=== PATIENT | male | born 1980 | race African-American/Black ===

== ENCOUNTER 2016-09-16 08:35 | Emergency (ER) | payer MEDICAID ==
--- NOTE | ~2016-09-16 | EKG ---
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
--- NOTE | ~2016-09-16 | CR72 ---
[facility]. 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 MEDICAL IMAGING REPORT This report is preliminary unless electronic signature is present. EXAM Portable chest. INDICATIONS Chest pain today. COMPARISON 03/16/2007 FINDINGS The lungs are well expanded. There is no acute infiltrate. Heart size is normal. Visualized osseous structures are unremarkable. IMPRESSION No active disease. Dictated by... Severino Melara M.D. THIS IS AN ELECTRONICALLY VERIFIED REPORT Severino Melara M.D. at 09/17/2016 3:47 PM Rich TD: 09/16/2016 20:31 JOB #: [id number] MEDICAL IMAGING REPORT Page 1 of 1
[~2016-09-16 08:35] MED LIST: ACYCLOVIR PO; ATARAX PO; DARVOCET-N 1001 TAB PO; ELIMITE60 G1 TOP; IBUPROFEN PO; KEFLEX500 MG PO; LORTAB 10-5001 EACH PO; NO MEDICATIONS; PHENERGAN PO; PREDNISONE PO; ULTRAM; ULTRAM PO; VOLTAREN75 MG PO; ZANTAC PO; ZITHROMAX PO; [UNRECOGNIZED DRUG - REMARK]
[2016-09-16 09:09] LABS: BASOPHIL# 0.1 X10e3 (0-0.3); BASOPHIL% 1.2 % (0-2.5); EOSINOPHIL# 0.2 X10e3 (0-0.7); EOSINOPHIL% 4.5 % (0.0-7.0); HEMATOCRIT 45.4 % (38.0-50.0); HEMOGLOBIN 15.7 gm/dL (13.0-16.0); LYMPHOCYTE# 2.3 X10e3 (1.0-3.5); MEAN CELL VOLUME 87.8 FL (83-96); MEAN CORPUSCULAR HEMOGLOBIN 30.4 PG (28-34); MEAN CORPUSCULAR HGB CONC 34.6 g/dL (30-36); MEAN PLATELET VOLUME 10.1 FL (6.5-11.5); MONOCYTE# 0.7 X10e3 (0-1.0); MONOCYTE% 11.9 % (3.0-12.0); NEUTROPHIL# 2.3 X10e3 (1.5-7.1); NEUTROPHIL% 41.4 % (40-75); PLATELET COUNT 165 X10e3 (140-420); RED BLOOD COUNT 5.17 X10e (3.90-5.60); RED CELL DISTRIBUTION WIDTH 13.1 % (11.0-15.5); WHITE BLOOD COUNT 5.5 X10e3 (4.0-10.5)
[2016-09-16 09:11] LABS: DIFF IND NO
[2016-09-16 09:11] LABS: POC - CKMB 1.9 ng/mL (0.0-7.9); POC - TROPONIN <0.05 ng/mL (<=0.05)
[2016-09-16 09:18] LABS: INR 1.1; PROTHROMBIN TIME (PATIENT) 12.6 SECONDS (9.5-12.4)
[2016-09-16 09:25] LABS: PARTIAL THROMBOPLASTIN TIME 30.6 SECONDS (25.6-38.1)
[2016-09-16 09:27] LABS: ALBUMIN SERUM 4.9 g/dL (3.5-5.0); BILIRUBIN, DIRECT 0.1 mg/dL (0.0-0.2); BILIRUBIN,INDIRECT 0.3 mg/dL (0.0-0.9); BILIRUBIN,TOTAL 0.4 mg/dL (0.2-2.0); CALCIUM SERUM 8.9 mg/dL (8.4-10.2); CREATININE SERUM 1.3 mg/dL (0.6-1.4); POTASSIUM 3.7 mmol/L (3.5-5.1); PROTEIN TOTAL SERUM 7.8 g/dL (6.0-8.3)
[2016-09-16 11:35] LABS: POC - CKMB <1.0 ng/mL (0.0-7.9); POC - TROPONIN <0.05 ng/mL (<=0.05)
== END 2016-09-16 11:46 | disposition home or self-care (01) ==
LOC: SED 08:35
PROVIDERS: Emergency Medicine
DX: R07.9 Chest pain, unspecified (principal); I10 Essential (primary) hypertension; F17.210 Nicotine dependence, cigarettes, uncomplicated
CPT/HCPCS: 36415; 71010; 80048; 80076; 82553; 84484; 85025; 85610; 85730; 93005; 99284

== ENCOUNTER → 2016-11-09 | Outpatient (CLI) | payer MEDICAID ==
[2016-11-13 11:54] LABS: ALDOSTERONE SERUM 6 ng/dL (***)
== END | disposition home or self-care (01) ==
LOC: CLAB 18:30
PROVIDERS: Internal Medicine Cardiovascular Disease
DX: E26.9 Hyperaldosteronism, unspecified (principal)
CPT/HCPCS: 36415; 82088; 84244